=== PATIENT | female | born 1990 ===

== ENCOUNTER 2017-08-10 15:17 | Emergency (ER) | payer SELFPAY ==
[2017-08-10 15:27] VITALS: TEMP 98.5; BMI 20.6
[2017-08-10 16:43] LABS: BASO # 0.02 K/mm3 (0.0-2.0); BASO % 0.2 % (0.0-3.0); EOS % 0.2 % (1.5-5.0); GRAN # 7.99 (1.4-6.5); GRAN % 81.4 % (50.0-68.0); HEMOGLOBIN 13.5 g/dL (12.0-16.0); LYMPH # 1.2 (1.2-3.4); LYMPH % 12.2 % (22.0-35.0); MEAN CORPUSCULAR HEMOGLOBIN 29.1 pg (25.0-35.0); MEAN CORPUSCULAR HGB CONC 32.7 g/dl (31.0-37.0); MEAN PLATELET VOLUME 10.5 fl (7.0-11.0); MONO # 0.6 (0.1-0.6); RBC 4.64 10^6/uL (3.5-6.1); RED CELL DISTRIBUTION WIDTH 13.9 % (11.5-14.5); WHITE BLOOD COUNT 9.8 10^3/ul (4.5-11.0)
[2017-08-10 16:44] LABS: PH,URINE 6.5 (4.7-8.0); URINE BILIRUBIN NEGATIVE (NEGATIVE); URINE BLOOD NEGATIVE (NEGATIVE); URINE GLUCOSE (UA) NEGATIVE (NEGATIVE); URINE LEUKOCYTE ESTERASE NEGATIVE Leu/uL (NEGATIVE); URINE NITRATE NEGATIVE (NEGATIVE); URINE PROTEIN NEGATIVE mg/dL (<30 mg/dL); URINE UROBILINOGEN 0.2 E.U./dL (<1 E.U./dL)
[2017-08-10 16:46] LABS: URINE APPEARANCE CLEAR (CLEAR); URINE COLOR YELLOW (YELLOW)
[2017-08-10 16:49] LABS: ACETAMINOPHEN < 10.0 ug/ml (10.0-20.0); ALB/GLOB RATIO 1.2 (1.1-1.8); ALBUMIN 4.4 g/dL (3.0-4.8); ALT/SGPT 25 U/L (7-56); AST/SGOT 30 U/L (14-36); BLOOD UREA NITROGEN 11 mg/dL (7-21); CALCIUM 10.3 mg/dL (8.4-10.5); GFR AFRICAN-AMERICAN > 60; GFR NON-AFRICAN AMERICAN > 60; SALICYLATE < 1 mg/dL (2.0-20.0)
[2017-08-10 17:25] LABS: BARBITURATES, UR NEGATIVE (NEGATIVE); BENZODIAZEPINES, UR NEGATIVE (NEGATIVE); OPIATES, UR NEGATIVE (NEGATIVE); PHENCYCLIDINE, UR NEGATIVE (NEGATIVE)
--- NOTE | 2017-08-10 18:04 | ED PDOC ---
Arrival/HPI - General Chief Complaint: Psychiatric Evaluation Time Seen by Provider: 08/10/17 15:28 Historian: Patient - History of Present Illness Narrative History of Present Illness (Text): 08/10/17 18:00 26-year-old female presents today complaining of depression. Patient denies chest pain or shortness of breath. Denies headaches blurry vision dizziness or weakness. Denies any trauma or injury. Patient states she does NOT have a history of depression. pt states she is so stressed with her 3 kids, recently moving, not having a break that she just feels overwhelmed and wants to rest. Past Medical History - Provider Review Nursing Documentation Reviewed: Yes - Travel History Have you recently traveled outside [place] w/in the past 3 mons?: No - Tetanus Immunization Tetanus Immunization: Unknown - Cardiac Hx Cardiac Disorders: No - Pulmonary Hx Respiratory Disorders: No - Neurological Hx Neurological Disorder: No - HEENT Hx HEENT Disorder: No - Renal Hx Renal Disorder: No - Endocrine/Metabolic Hx Endocrine Disorders: No - Hematological/Oncological Hx Blood Disorders: No - Integumentary Hx Dermatological Disorder: No - Musculoskeletal/Rheumatological Hx Musculoskeletal Disorders: No - Gastrointestinal Hx Gastrointestinal Disorders: No - Genitourinary/Gynecological Hx Genitourinary Disorders: No - Psychiatric Hx Psychophysiologic Disorder: No Hx Substance Use: No Family/Social History - Physician Review Nursing Documentation Reviewed: Yes Family/Social History: Unknown Family HX Smoking Status: Never Smoked Hx Alcohol Use: No Hx Substance Use: No Allergies/Home Meds Allergies/Adverse Reactions: Allergies No Known Allergies Allergy (Verified 08/10/17 15:27) Home Medications: Home Meds Medication Instructions Recorded Confirmed No Known Home Med 08/10/17 08/10/17 Review of Systems - Review of Systems Constitutional: absent: Fatigue, Fevers Respiratory: absent: SOB, Cough Cardiovascular: absent: Chest Pain, Palpitations Gastrointestinal: absent: Abdominal Pain, Nausea, Vomiting Musculoskeletal: absent: Arthralgias Skin: absent: Rash, Pruritis Psychiatric: Depression. absent: Suicidal Ideation Physical Exam Vital Signs Reviewed: Yes Vital Signs Temp Pulse Resp BP Pulse Ox 08/10/17 15:27 98.5 F 101 H 18 106/75 98 08/10/17 15:26 98.5 F 101 H 18 106/75 98 Temperature: Afebrile Blood Pressure: Normal Pulse: Tachycardic Respiratory Rate: Normal Appearance: Positive for: Well-Appearing, Non-Toxic, Comfortable Pain Distress: None Mental Status: Positive for: Alert and Oriented X 3 - Systems Exam Head: Present: Atraumatic Mouth: Present: Moist Mucous Membranes Neck: Present: Normal Range of Motion Respiratory/Chest: Present: Clear to Auscultation, Good Air Exchange. No: Respiratory Distress, Accessory Muscle Use Cardiovascular: Present: Regular Rate and Rhythm, Normal S1, S2. No: Murmurs Abdomen: No: Tenderness, Rebound, Guarding Upper Extremity: Present: Normal ROM Lower Extremity: Present: Normal ROM Neurological: Present: GCS=15, Speech Normal Skin: Present: Warm, Dry, Normal Color. No: Rashes Psychiatric: Present: Alert, Oriented x 3, Depressed Mood, Suicidal Ideation Medical Decision Making ED Course and Treatment: 08/10/17 18:02 Patient is nontoxic well-appearing in no distress vital signs are stable. CBC WNL CMP WNL Tylenol WNL Salicylate WNL Alcohol level WNL Urine drug screen wnl UA; wnl ekg NSR at 86bmp no st elevations, normal axis normal intervals. pt is medically cleared for PES evaluation Patient was seen and evaluated by PES screener: Titus Patient denies suicidal or homicidal ideation at this time. Patient cleared psychiatrically for discharge. Impression; adjustment disorder Follow-up with the primary care physician within the next 2 days Follow-up with the [facility] Return if symptoms worsen persist or if new concerning symptoms develop - Lab Interpretations Lab Results: 08/10/17 16:30 08/10/17 16:30 Lab Results 08/10/17 16:30: Alcohol, Quantitative < 10 08/10/17 16:30: Salicylates < 1 L, Acetaminophen < 10.0 L 08/10/17 16:30: Urine Opiates Screen Negative, Urine Methadone Screen Negative, Ur Barbiturates Screen Negative, Ur Phencyclidine Scrn Negative, Ur Amphetamines Screen Negative, U Benzodiazepines Scrn Negative, U Oth Cocaine Metabols Negative, U Cannabinoids Screen Negative 08/10/17 16:30: Sodium 142, Potassium 4.1, Chloride 103, Carbon Dioxide 28, Anion Gap 15, BUN 11, Creatinine 0.8, Est GFR ( Amer) > 60, Est GFR (Non- Af Amer) > 60, Random Glucose 108, Calcium 10.3, Total Bilirubin 1.1, AST 30, ALT 25, Alkaline Phosphatase 63, Total Protein 7.9, Albumin 4.4, Globulin 3.5, Albumin/Globulin Ratio 1.2 08/10/17 16:30: Urine Color Yellow, Urine Appearance Clear, Urine pH 6.5, Ur Specific [place] 1.025, Urine Protein Negative, Urine Glucose (UA) Negative, Urine Ketones Negative, Urine Blood Negative, Urine Nitrate Negative, Urine Bilirubin Negative, Urine Urobilinogen 0.2, Ur Leukocyte Esterase Negative 08/10/17 16:30: WBC 9.8, RBC 4.64, Hgb 13.5, Hct 41.3, MCV 89.0, MCH 29.1, MCHC 32.7, RDW 13.9, Plt Count 242, MPV 10.5, Gran % 81.4 H, Lymph % (Auto) 12.2 L, [place] % (Auto) 6.0, Eos % (Auto) 0.2 L, Baso % (Auto) 0.2, Gran # 7.99 H, Lymph # (Auto) 1.2, [place] # (Auto) 0.6, Eos # (Auto) 0.0, Baso # (Auto) 0.02 Disposition/Present on Arrival - Present on Arrival Any Indicators Present on Arrival: No History of DVT/PE: No History of Uncontrolled Diabetes: No Urinary Catheter: No History of Decub. Ulcer: No History Surgical Site Infection Following: None - Disposition Have Diagnosis and Disposition been Completed?: Yes Diagnosis: Adjustment disorder Disposition: HOME/ ROUTINE Disposition Time: 19:04 Patient Plan: Discharge Condition: GOOD Discharge Instructions (ExitCare): Adjustment Disorder Additional Instructions: Follow-up with the primary care physician within the next 2 days Follow-up with the [facility] Return if symptoms worsen persist or if new concerning symptoms develop Referrals: [facility] [place] - Follow up with primary [facility] [place] [Outside] - [place] [facility] - Follow up with primary Forms: [employer] ([employer])
[2017-08-10 20:02] VITALS: BP 113/64; PULSE 86; RESP 14; O2SAT 99
--- NOTE | 2017-08-11 15:01 | CARD ---
APPROVED REPORT EKG Measurement Heart [id number] <Conclusion> Normal sinus rhythm Normal ECG
== END 2017-08-10 17:55 | disposition home or self-care (01) ==
LOC: ED 15:17
DX: F43.20 Adjustment disorder, unspecified (principal)
CPT/HCPCS: 80053; 81003; 85025; 90791; 93005; 99284; G0480

== ENCOUNTER 2017-10-23 22:37 | Inpatient (IN) | payer MEDICAID ==
[2017-10-23 22:38] VITALS: BMI 20.6
[2017-10-23 23:31] LABS: BASO # 0.01 K/mm3 (0.0-2.0); BASO % 0.1 % (0.0-3.0); EOS # 0.1 (0.0-0.7); EOS % 1.6 % (1.5-5.0); GRAN # 4.97 (1.4-6.5); GRAN % 65.3 % (50.0-68.0); HEMOGLOBIN 11.9 g/dL (12.0-16.0); LYMPH # 1.9 (1.2-3.4); LYMPH % 25.2 % (22.0-35.0); MEAN CORPUSCULAR HEMOGLOBIN 28.2 pg (25.0-35.0); MEAN CORPUSCULAR HGB CONC 32.8 g/dl (31.0-37.0); MONO # 0.6 (0.1-0.6); MONO % 7.8 % (1.0-6.0); RBC 4.22 10^6/uL (3.5-6.1); RED CELL DISTRIBUTION WIDTH 13.7 % (11.5-14.5); WHITE BLOOD COUNT 7.6 10^3/ul (4.5-11.0)
[2017-10-23 23:38] LABS: ALB/GLOB RATIO 1.3 (1.1-1.8); ALBUMIN 4.2 g/dL (3.0-4.8); ALT/SGPT 20 U/L (7-56); AST/SGOT 25 U/L (14-36); BLOOD UREA NITROGEN 11 mg/dL (7-21); CALCIUM 9.2 mg/dL (8.4-10.5); GFR AFRICAN-AMERICAN > 60; GFR NON-AFRICAN AMERICAN > 60
[2017-10-23 23:39] LABS: ACETAMINOPHEN < 10.0 ug/ml (10.0-20.0); SALICYLATE < 1 mg/dL (2.0-20.0)
--- NOTE | 2017-10-24 | ED PDOC ---
Arrival/HPI - General Chief Complaint: Psychiatric Evaluation Time Seen by Provider: 10/23/17 23:10 Historian: Patient - History of Present Illness Narrative History of Present Illness (Text): 10/23/17 23:54 27-year-old female presents today with depression and suicidal ideation. Patient states everything is bothering her. Patient states she just can't deal with anything anymore. Patient states she feels alone. Patient states she cut her left forearm. Patient denies chest pain or shortness of breath no abdominal pain. Denies urinary symptoms. No other complaints Past Medical History - Provider Review Nursing Documentation Reviewed: Yes - Travel History Have you recently traveled outside [place] w/in the past 3 mons?: No - Infectious Disease Hx of Infectious Diseases: None - Tetanus Immunization Tetanus Immunization: Up to Date (2014) - Cardiac Hx Cardiac Disorders: No - Pulmonary Hx Respiratory Disorders: No - Neurological Hx Neurological Disorder: No - HEENT Hx HEENT Disorder: No - Renal Hx Renal Disorder: No - Endocrine/Metabolic Hx Endocrine Disorders: No - Hematological/Oncological Hx Blood Disorders: No - Integumentary Hx Dermatological Disorder: No - Musculoskeletal/Rheumatological Hx Musculoskeletal Disorders: No - Gastrointestinal Hx Gastrointestinal Disorders: No - Genitourinary/Gynecological Hx Genitourinary Disorders: No - Psychiatric Hx Psychophysiologic Disorder: No Hx Substance Use: No - Anesthesia Hx Anesthesia: No Family/Social History - Physician Review Nursing Documentation Reviewed: Yes Family/Social History: Unknown Family HX Smoking Status: Never Smoked Hx Alcohol Use: No Hx Substance Use: No Allergies/Home Meds Allergies/Adverse Reactions: Allergies No Known Allergies Allergy (Verified 10/23/17 22:51) Home Medications: Home Meds Medication Instructions Recorded Confirmed No Known Home Med 08/10/17 10/23/17 Review of Systems - Review of Systems Constitutional: absent: Fatigue, Fevers Respiratory: absent: SOB, Cough Cardiovascular: absent: Chest Pain, Palpitations Gastrointestinal: absent: Abdominal Pain, Nausea, Vomiting Skin: Rash Neurological: absent: Headache, Dizziness Psychiatric: Depression, Suicidal Ideation. absent: Anxiety Physical Exam Vital Signs Reviewed: Yes Vital Signs Temp Pulse Resp BP Pulse Ox 10/24/17 01:42 87 16 98 10/24/17 00:44 108 H 18 108/68 98 10/23/17 22:49 98.8 F 109 H 18 109/72 100 Temperature: Afebrile Blood Pressure: Normal Pulse: Tachycardic Respiratory Rate: Normal Appearance: Positive for: Well-Appearing, Non-Toxic, Comfortable Pain Distress: None Mental Status: Positive for: Alert and Oriented X 3 - Systems Exam Head: Present: Atraumatic Respiratory/Chest: Present: Clear to Auscultation Cardiovascular: Present: Tachycardic. No: Murmurs Abdomen: No: Tenderness, Distention, Rebound, Guarding Upper Extremity: Present: Other (multiple abrasions noted to left volar forearm ; no edema, no erythema; no ecchymosis; non tender; full ROM of extremity. ) Neurological: Present: GCS=15, Speech Normal Skin: Present: Warm, Dry Psychiatric: Present: Alert, Oriented x 3 Medical Decision Making ED Course and Treatment: 10/23/17 23:56 Patient is nontoxic well-appearing in no distress vital signs are stable. CBC WNL CMP WNL Tylenol WNL Salicylate WNL Alcohol level WNL Urine drug screen wnl UA; wnl cxr: wnl ekg normal sinus rhythm at 97 bpm normal axis normal intervals no ST elevations wounds cleaned. bacitracin and dressing applied. pt is medically cleared for PES evaluation Patient was seen and evaluated by PES screener: Nabila Patient sign voluntarily for psychiatric admission Impression; depression, abrasions, forearm Admit behavioral health - Lab Interpretations Lab Results: 10/23/17 23:24 10/23/17 23:24 Lab Results 10/23/17 23:55: Urine Opiates Screen Negative, Urine Methadone Screen Negative, Ur Barbiturates Screen Negative, Ur Phencyclidine Scrn Negative, Ur Amphetamines Screen Negative, U Benzodiazepines Scrn Negative, U Oth Cocaine Metabols Negative, U Cannabinoids Screen Negative 10/23/17 23:55: Urine Color Yellow, Urine Appearance Sl cloudy, Urine pH 6.5, Ur Specific [place] 1.025, Urine Protein Trace H, Urine Glucose (UA) Negative, Urine Ketones Trace H, Urine Blood Negative, Urine Nitrate Negative, Urine Bilirubin Negative, Urine Urobilinogen 0.2, Ur Leukocyte Esterase Negative, Urine RBC 0 - 2, Urine WBC 0 - 2, Ur Epithelial Cells Many, Urine Bacteria Few 10/23/17 23:24: Alcohol, Quantitative < 10 10/23/17 23:24: Salicylates < 1 L, Acetaminophen < 10.0 L 10/23/17 23:24: Sodium 144, Potassium 3.9, Chloride 105, Carbon Dioxide 28, Anion Gap 16, BUN 11, Creatinine 0.8, Est GFR ( Amer) > 60, Est GFR (Non- Af Amer) > 60, Random Glucose 101, Calcium 9.2, Total Bilirubin 0.3, AST 25, ALT 20, Alkaline Phosphatase 58, Total Protein 7.4, Albumin 4.2, Globulin 3.2, Albumin/Globulin Ratio 1.3 10/23/17 23:24: WBC 7.6 D, RBC 4.22, Hgb 11.9 L, Hct 36.3, MCV 86.0 D, MCH 28.2, MCHC 32.8, RDW 13.7, Plt Count 254, MPV 10.0, Gran % 65.3, Lymph % (Auto) 25.2, [place] % (Auto) 7.8 H, Eos % (Auto) 1.6, Baso % (Auto) 0.1, Gran # 4.97, Lymph # (Auto) 1.9, [place] # (Auto) 0.6, Eos # (Auto) 0.1, Baso # (Auto) 0.01 - RAD Interpretation Radiology Orders: 10/23/17 23:13 CHEST PORTABLE [RAD] Stat - Medication Orders Current Medication Orders: Discontinued Medications Acetaminophen (Tylenol 325mg Tab) 650 mg PO STAT STA Stop: 10/24/17 01:14 Last Admin: 10/24/17 01:41 Dose: 650 mg MAR Pain/Vitals Document 10/24/17 01:41 ELOINA (Rec: 10/24/17 01:42 ELOINA [id number]) Pain Reassessment Is This A Pain ReAssessment? Yes Sleep Is patient sleeping during reassessment? Yes Pain Scale Used Pain Scale Used Numeric Location Upper or Lower Upper Pain Location Body Diagnostic Technician Description Constant Intensity 4 Scale Used Numeric Pain Behavior Facial Grimacing VS Changes Disposition/Present on Arrival - Present on Arrival Any Indicators Present on Arrival: No History of DVT/PE: No History of Uncontrolled Diabetes: No Urinary Catheter: No History of Decub. Ulcer: No History Surgical Site Infection Following: None - Disposition Have Diagnosis and Disposition been Completed?: Yes Diagnosis: Depression, Abrasion forearm Disposition: HOSPITALIZED Disposition Time: 02:06 Patient Plan: Admission Condition: FAIR Forms: [email or web address] ([place]ian)
[2017-10-24 00:52] LABS: PH,URINE 6.5 (4.7-8.0); URINE BILIRUBIN NEGATIVE (NEGATIVE); URINE BLOOD NEGATIVE (NEGATIVE); URINE GLUCOSE (UA) NEGATIVE (NEGATIVE); URINE LEUKOCYTE ESTERASE NEGATIVE Leu/uL (NEGATIVE); URINE PROTEIN TRACE mg/dL (<30 mg/dL); URINE UROBILINOGEN 0.2 E.U./dL (<1 E.U./dL)
[2017-10-24 00:54] LABS: URINE APPEARANCE SL CLOUDY (CLEAR); URINE COLOR YELLOW (YELLOW)
[2017-10-24 01:01] LABS: URINE BACTERIA FEW (NEG); URINE EPITHELIAL CELLS MANY /hpf (0-5); URINE RBC 0 - 2 /hpf (0-2); URINE WBC 0 - 2 /hpf (0-6)
[2017-10-24 01:26] LABS: BARBITURATES, UR NEGATIVE (NEGATIVE); BENZODIAZEPINES, UR NEGATIVE (NEGATIVE); OPIATES, UR NEGATIVE (NEGATIVE); PHENCYCLIDINE, UR NEGATIVE (NEGATIVE)
[2017-10-24 03:08] VITALS: O2SAT 98
[2017-10-24] MEDS ORDERED: Magnesium Hydroxide Susp 30 ml UD PO PRN (03:44)
[2017-10-24] MEDS ORDERED: Alum-Mag Hydrox-Simethicone Susp (30 mL) PO PRN (03:44)
--- NOTE | 2017-10-24 05:49 | PCM.BM ---
<BobbyBishop - Last Filed: 10/24/17 05:46> Treatment Plan Problems - Problems identified on initial assessmt Ineffective Coping Date Initiated: 10/24/17 Time Initiated: 03:30 Assessment reference: NA Status: Active Priority: 1 Hopelessness/Helplessness Date Initiated: 10/24/17 Time Initiated: 03:30 Assessment reference: NA Status: Active Priority: 2 Feelings of Worthlessness Date Initiated: 10/24/17 Time Initiated: 03:30 Assessment reference: NA Status: Active Priority: 3 Altered Sleep Patterns Date Initiated: 10/24/17 Time Initiated: 03:30 Assessment reference: NA Status: Active Priority: 4 Treatment assets and liabiliti Patient Assests: ADL independent, good support system, cognitively intact Patient Liabilities: financial problems - Milieu Protocol Maintain good personal hygiene: daily Encourage regular showers, every shift Remind patient to perform daily oral care, every shift Assist patient to perform ADL's Maintain personal safety: every shift Educate patient to report safety concerns to staff, every shift Monitor environment for contraband/sharps Medication safety: Monitor for expected outcome, potential side effects: every shift, Assess barriers to learning: every shift, Assess readiness for medication education: every shift Family Contact - Goals for Treatment Patient goals for treatment: "to get better" Discharge/Continuing Care - Education Needs Education Needs: Patient Medication, Patient Diagnosis/Disease Process, Patient Coping Skills, Patient Community resources, Patient Nutrition, Patient Health Practices/Safety, Patient Aftercare Safety Plan - Discharge Discharge Criteria: Tolerates medication w/o severe side effects, Normal sleep pattern <Clau Velazquez - Last Filed: 10/24/17 09:11> - Diagnosis (1) MDD (major depressive disorder) Status: Acute Interventions: 10/24/17 09:11 Psychoeducation Psychopharmacology/adjustment of medications as needed/ monitoring possible side effects Evaluate pt on daily basis Compliance with medications and follow up appointments Suicide and homicide risk assessment and prevention Relapse prevention Reduction of symptoms Improve functional status Family involvement As outpatient: cognitive behavioral therapy (2) PTSD (post-traumatic stress disorder) Status: Acute Interventions: 10/24/17 09:12 Psychoeducation Psychopharmacology/adjustment of medications as needed/ monitoring possible side effects Evaluate pt on daily basis Discussion of importance of being compliant with medications and follow up appointments Suicide and homicide risk assessment and prevention, coping strategies, safety plan Reduction of symptoms Relaxation techniques and breathing exercises Improve functional status Family involvement Cognitive behavioral therapy as outpatient <Joelle Flores - Last Filed: 10/25/17 12:40>
[2017-10-24 07:39] VITALS: RESP 20
[2017-10-24 07:58] LABS: GLUCOSE,FASTING 85 mg/dL (65-110); HDL CHOLESTEROL 61 mg/dL (29-60)
[2017-10-24 08:10] LABS: LDL CHOLESTEROL 66 mg/dL (0-129)
--- NOTE | 2017-10-24 09:36 | RAD ---
HISTORY: pes eval COMPARISON: No prior. FINDINGS: LUNGS: No active pulmonary disease. PLEURA: No significant pleural effusion identified, no pneumothorax apparent. CARDIOVASCULAR: Normal. OSSEOUS STRUCTURES: No significant abnormalities. VISUALIZED UPPER ABDOMEN: Normal. OTHER FINDINGS: None. IMPRESSION: No acute cardiopulmonary disease appreciated.
--- NOTE | 2017-10-24 10:27 | CARD ---
APPROVED REPORT EKG Measurement Heart [id number] <Conclusion> Normal sinus rhythm Normal ECG No change
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
--- NOTE | 2017-10-25 13:12 | PCM.PYCHPN ---
Psychiatric Progress Note - Psychiatric Progress Note Patient seen today, length of contact: 25 min Patient Chief Complaint: "better" Problems Identified/Issues Discussed: I reviewed admission assessment. Patient is 27-year-old female who was BIB [place] police after neighbors called police due to patient loudly crying because she was overwhelmed with her kids who are 6,4 and 2 years old. Patient was admitted to the psychiatric inpatient unit for evaluation of depression and passive wishes. I reviewed recent notes. I met with patient at bedside and again during treatment team meeting. She is groomed and well-oriented to month, year, location and circumstances. Her emotional control appears to be improved since admission and patient reports that she is feeling better I feel like a lot of weight has been lifted off my chest. Patient has been taking her medications and denies side effects. Her affect is constricted however she does appear genuine when she reports improvement in symptoms. Patient acknowledges that she needs more support and indicates she plans to continue taking her medications upon discharge. Sleep is "okay", she only wants to take the sleeping pill when she needs it. Patient reports that she misses her children and she is looking forward to seeing them on Mothers day. She requests discharge by this day and readily provides consent for this provider to contact both her boyfriend and her mother to discuss her functioning and discharge plans. Patient denied visual, tactile, auditory hallucinations and denied paranoid ideations. Patient did not appear psychotic. She appeared more spontaneous and communicative than prior reports described. Thus far she has been in good control on the unit. She is visible and socializing appropriately with peers. Still seems a little guarded but not evasive or secretive. She may be shy. Insight and judgement are improving. Diagnostic Results: rule out major depressive disorder, single episode, with no psychosis, severe Rule out adjustment disorder Rule out PTSD Mental Status Examination - Cognitive Function Orientation: Person, Place, Situation, Time Attention: WNL Concentration: WNL Association: WNL Fund of Knowledge: WNL - Mood Mood: Depressed (better) - Affect Affect: Constricted (more reactive and communicative) - Formal Thought Process Formal Thought Process: No Impairment - Suicidal Ideation Suicidal Ideation: No - Homicidal Ideation Homicidal Ideation: No Goal/Treatment Plan - Goal/Treatment Plan Progress Toward Problem(s) and Goals/Treatment Plan: * c/w current tx and plan * Outreach to patient's mother [phone] and/or boyfriend [phone] for further collateral. * No new labs today thus far * Vitals reviewed and noted below: Selected Entries 10/25/17 06:51 Temperature 97.4 F L Pulse Rate 80 Respiratory 20 Rate Blood Pressure 97/59 L
--- NOTE | 2017-10-26 10:31 | PCM.PYCHPN ---
Psychiatric Progress Note - Psychiatric Progress Note Patient seen today, length of contact: 25 min Patient Chief Complaint: "better" Problems Identified/Issues Discussed: I reviewed admission assessment. Patient is 27-year-old female who was BIB [place] police after neighbors called police due to patient loudly crying because she was overwhelmed with her kids who are 6,4 and 2 years old. Patient was admitted to the psychiatric inpatient unit for evaluation of depression and passive wishes. I reviewed recent notes. I met with patient at bedside again today. She is groomed and well-oriented to month, year, location and circumstances. Her emotional control shows consistent improvement since admission and patient reports that she is feeling better, less anxious and less stephenson. Patient has been taking her medications and denies side effects. Her affect is constricted however she does appear genuine when she reports improvement in symptoms. Patient acknowledges that she needs more support and indicates she plans to continue taking her medications upon discharge which she hopes occurs tomorrow. Patient reports plan to see her children, mom, aunt, grandmother, cousins and god-daughter tomorrow. Sleep is "okay", she only wants to take the sleeping pill when she needs it. Patient denied visual, tactile, auditory hallucinations and denied paranoid ideations. Patient does not appear psychotic. She is more spontaneous and communicative than at admission. Remains in good control and continues to be visible and socializes with peers. Generally friendly upon approach. Mildly guarded but not evasive or secretive, this is more likely secondary to shyness. I/J are improving. Diagnostic Results: rule out major depressive disorder, single episode, with no psychosis, severe Rule out adjustment disorder Rule out PTSD Mental Status Examination - Cognitive Function Orientation: Person, Place, Situation, Time Attention: WNL Concentration: WNL Association: WNL Fund of Knowledge: WNL - Mood Mood: Depressed (better) - Affect Affect: Constricted (more reactive and communicative) - Formal Thought Process Formal Thought Process: No Impairment - Suicidal Ideation Suicidal Ideation: No - Homicidal Ideation Homicidal Ideation: No Goal/Treatment Plan - Goal/Treatment Plan Progress Toward Problem(s) and Goals/Treatment Plan: * c/w current tx and plan * SW to outreach patient's mother [phone] and/or boyfriend [phone] regarding discharge plan for tomorrow. * No new labs today thus far * Vitals reviewed and noted below: Selected Entries 10/26/17 07:23 Temperature 97.6 F Pulse Rate 90 Respiratory 20 Rate Blood Pressure 98/62 L
[2017-10-27 06:57] VITALS: BP 98/60; PULSE 82; TEMP 97.4
--- NOTE | 2017-10-27 10:41 | PCM.PYCHDC ---
Mental Status Examination - Mental Status Examination Orientation: Person, Place, Situation Memory: Intact Mood: Depressed (Much improved, hopeful) Affect: Broad Speech: Appropriate Attention: WNL Concentration: WNL Association: WNL Fund of Knowledge: WNL Formal Thought Process: No Impairment Description of patient's judgement and insight: Patient's insight and judgement are good and much improved Psychotic Thoughts and Behaviors: Patient denied hallucinations or paranoia. Delusions were not elicited. Suicidal Ideation: No Current Homicidal Ideation?: No Discharge Summary - Discharge Note Reason for Hospitalization: Patient is 27-year-old female who was BIB [place] police after neighbors called police due to patient loudly crying because she was overwhelmed with her kids who are 6,4 and 2 years old. Patient was admitted to the psychiatric inpatient unit for evaluation of depression and passive wishes. Psychiatric History (includes Medical, Family, Personal Hx): see HPI Laboratory Data: Laboratory Tests 10/23/17 10/23/17 10/23/17 23:24 23:24 23:24 WBC 7.6 D RBC 4.22 Hgb 11.9 L Hct 36.3 MCV 86.0 D MCH 28.2 MCHC 32.8 RDW 13.7 Plt Count 254 MPV 10.0 Gran % 65.3 Lymph % (Auto) 25.2 [place] % (Auto) 7.8 H Eos % (Auto) 1.6 Baso % (Auto) 0.1 Gran # 4.97 Lymph # (Auto) 1.9 [place] # (Auto) 0.6 Eos # (Auto) 0.1 Baso # (Auto) 0.01 Sodium 144 Potassium 3.9 Chloride 105 Carbon Dioxide 28 Anion Gap 16 BUN 11 Creatinine 0.8 Est GFR ( Amer) > 60 Est GFR (Non-Af Amer) > 60 Random Glucose 101 Fasting Glucose Calcium 9.2 Total Bilirubin 0.3 AST 25 ALT 20 Alkaline Phosphatase 58 Total Protein 7.4 Albumin 4.2 Globulin 3.2 Albumin/Globulin Ratio 1.3 Triglycerides Cholesterol LDL Cholesterol Direct HDL Cholesterol TSH 3rd Generation Urine Color Urine Appearance Urine pH Ur Specific Cunningham Urine Protein Urine Glucose (UA) Urine Ketones Urine Blood Urine Nitrate Urine Bilirubin Urine Urobilinogen Ur Leukocyte Esterase Urine RBC Urine WBC Ur Epithelial Cells Urine Bacteria Salicylates < 1 L Urine Opiates Screen Urine Methadone Screen Acetaminophen < 10.0 L Ur Barbiturates Screen Ur Phencyclidine Scrn Ur Amphetamines Screen U Benzodiazepines Scrn U Oth Cocaine Metabols U Cannabinoids Screen Alcohol, Quantitative RPR 10/23/17 10/23/17 10/23/17 23:24 23:55 23:55 WBC RBC Hgb Hct MCV MCH MCHC RDW Plt Count MPV Gran % Lymph % (Auto) [place] % (Auto) Eos % (Auto) Baso % (Auto) Gran # Lymph # (Auto) [place] # (Auto) Eos # (Auto) Baso # (Auto) Sodium Potassium Chloride Carbon Dioxide Anion Gap BUN Creatinine Est GFR ( Amer) Est GFR (Non-Af Amer) Random Glucose Fasting Glucose Calcium Total Bilirubin AST ALT Alkaline Phosphatase Total Protein Albumin Globulin Albumin/Globulin Ratio Triglycerides Cholesterol LDL Cholesterol Direct HDL Cholesterol TSH 3rd Generation Urine Color Yellow Urine Appearance Sl cloudy Urine pH 6.5 Ur Specific Cunningham 1.025 Urine Protein Trace H Urine Glucose (UA) Negative Urine Ketones Trace H Urine Blood Negative Urine Nitrate Negative Urine Bilirubin Negative Urine Urobilinogen 0.2 Ur Leukocyte Esterase Negative Urine RBC 0 - 2 Urine WBC 0 - 2 Ur Epithelial Cells Many Urine Bacteria Few Salicylates Urine Opiates Screen Negative Urine Methadone Screen Negative Acetaminophen Ur Barbiturates Screen Negative Ur Phencyclidine Scrn Negative Ur Amphetamines Screen Negative U Benzodiazepines Scrn Negative U Oth Cocaine Metabols Negative U Cannabinoids Screen Negative Alcohol, Quantitative < 10 RPR 10/24/17 10/24/17 10/24/17 07:00 07:00 07:00 WBC RBC Hgb Hct MCV MCH MCHC RDW Plt Count MPV Gran % Lymph % (Auto) [place] % (Auto) Eos % (Auto) Baso % (Auto) Gran # Lymph # (Auto) [place] # (Auto) Eos # (Auto) Baso # (Auto) Sodium Potassium Chloride Carbon Dioxide Anion Gap BUN Creatinine Est GFR ( Amer) Est GFR (Non-Af Amer) Random Glucose Fasting Glucose 85 Calcium Total Bilirubin AST ALT Alkaline Phosphatase Total Protein Albumin Globulin Albumin/Globulin Ratio Triglycerides 62 Cholesterol 161 LDL Cholesterol Direct 66 HDL Cholesterol 61 H TSH 3rd Generation 2.97 Urine Color Urine Appearance Urine pH Ur Specific Cunningham Urine Protein Urine Glucose (UA) Urine Ketones Urine Blood Urine Nitrate Urine Bilirubin Urine Urobilinogen Ur Leukocyte Esterase Urine RBC Urine WBC Ur Epithelial Cells Urine Bacteria Salicylates Urine Opiates Screen Urine Methadone Screen Acetaminophen Ur Barbiturates Screen Ur Phencyclidine Scrn Ur Amphetamines Screen U Benzodiazepines Scrn U Oth Cocaine Metabols U Cannabinoids Screen Alcohol, Quantitative RPR Nonreactive Consultations:: List each consultation separately and include: 1. Reason for request. 2. Findings. 3. Follow-up Consultations: NONE Summary of Hospital Course include:: 1. Description of specific treatment plan utilized for patients during their course of treatmen. 2. Summarize the time- course for resolution of acute symptoms and/or regressed behaviors. 3. Describe issues identified and worked on during hospitalization. 4. Describe medication utilized. 5. Describe medical problems identified and treated. 6. Reassessment of suicide risk Summary of Hospital Course: Patient is 27-year-old female who was BIB [place] police after neighbors called police due to patient loudly crying because she was overwhelmed with her kids who are 6,4 and 2 years old. Patient was admitted to the psychiatric inpatient unit for evaluation of depression and passive wishes. Patient was initially quiet labile when arriving on the unit. Her emotional control has improved a lot since admission and patient consistently reported improvement in emotional control and anxiety, stating "I feel like a lot of weight has been lifted off my chest". Patient has been taking her medications and denies side effects. Her affect is constricted however she does appear genuine when she reports improvement in symptoms. Patient acknowledges that she needs more support and indicates she plans to continue taking her medications upon discharge. Sleep is okay, she only wants to take the sleeping pill when she needs it, she only took sonata once during hospitalization. It was beneficial. Denied any side effects from her medications. Patient reports that she misses her children and looking forward to seeing them on Mothers day. She requested discharge by this day and readily provided consent for boyfriend and her mother to discuss her functioning and discharge plans. SW contacted them the day prior to discharge, please refer to summary for more detail. Both felt comfortable with patient's discharge on mother's day. Patient denied visual, tactile, auditory hallucinations and denied paranoid ideations. Patient did not appear psychotic. She appeared more spontaneous and communicative than prior reports admission notes described. She has been in good control on the unit. She is visible and socializing appropriately with peers. Insight, judgement and impulse control are considerably improved and stable at discharge. - Final Diagnosis (DSM 5) Condition upon Discharge: IMPROVED DSM 5: Major depressive disorder, single episode, with no psychosis, severe Rule out adjustment disorder Rule out PTSD Disposition: HOME/ ROUTINE Follow-up Treatment Plan: I APPRECIATE SOCIAL WORK FOLLOW UP ON OCTOBER 26, 2017. SOCIAL WORK PROGRESS NOTES REGARDING DISCHARGE COLLATERAL AND AFTERCARE RECOMMENDATIONS NOTED BELOW: 10/26/17 13:35 - Social Work Progress Note by Rogerio Shah Jr. Acct Num: [id number] : 1990 Patient Age: 27 Patient may be discharged within the next 48 hours. Patient health summary and discharge plan will be faxed to [facility] after discharge is finalized and documentation is available. [employer] spoke with Patient about referral and follow up at [facility] and given information to [facility] Initialized on 10/26/17 13:35 - END OF NOTE 10/26/17 10:54 - Social Work Progress [facility] Rogerio Shah Jr[facility]: [id number] 1990 Patient Age: 27 [address] [employer] spoke with Patient's boyfriend, Dash Wolfe ([phone]) that noted he was planning to contact the unit and request to speak with someone about Patient being discharged so she could be home with her children for Mother 's Day. According to the Mr. Wolfe, Patient was taking an antibiotic for a problems related to her wisdom tooth and believes that her symptoms were amplified due to medication. He also noted that Patient's remaining on the unit could produce effects if she begins to feel trapped and unable to leave. Patient 's boyfriend denied having any concerns about the Patient returning home. Mr. Wolfe denied any safety concerns following discharge. Patient's boyfriend reported that he would transport Patient home at time of discharge. Initialized on 10/26/17 10:54 - END OF NOTE 10/26/17 10:43 - Social Work Progress Note by Rogerio Shah Jr. Acct Num: [id number] : 1990 Patient Age: 27 [address] [employer] spoke with Patient's mother, Kailyn Cunningham ([phone]), that reported feeling comfortable and advocated for Patient's discharge stating "she' s a good mother and not abusive towards her children". According to Patient's mother, Patient has moments of feeling overwhelmed (not frequent) which results in 'high anxiety and panic attacks. Ms. Cunningham noted that her daughter just needs to be stabilized on the right medication and she hannah be fine. The following prescriptions were called into [address] at 10:30 am [phone] Wellbutrin 75 mg po bid, 15 day supply +2 RF Klonopin 0.25 mg po bid, 15 day supply +2 RF Sonata 5 mg tablets, 1 tablet po HS prn: insomnia, #7 tablets +2 RF Prescriptions/Medication Reconciliation: buPROPion [Wellbutrin] 75 mg PO BID #30 tab clonazePAM [Klonopin] 0.25 mg PO BID #40 tab Zaleplon [Sonata] 5 mg PO HS PRN #30 cap PRN Reason: Insomnia - Smoking Cessation Smoking Cessation Medication prescribed: No Reason for not providing: Patient denied tobacco use - Antipsychotic Medications Pt discharged on 2 or more routine antipsychotic medications: No
== END 2017-10-27 11:44 | disposition home or self-care (01) | DRG 426 ==
LOC: ED 22:37 → ERH 10-24 02:07 → PSYC 10-24 03:07
PROVIDERS: ADMIT Psychiatry & Neurology Psychiatry; ATTEND Psychiatry & Neurology Psychiatry
DX: F32.9 Major depressive disorder, single episode, unspecified (principal); F43.10 Post-traumatic stress disorder, unspecified; R45.851 Suicidal ideations; J45.909 Unspecified asthma, uncomplicated; S50.812A Abrasion of left forearm, initial encounter; S51.812A Laceration without foreign body of left forearm, initial encounter; Z91.410 Personal history of adult physical and sexual abuse